=== PATIENT | female | born 1980 | race Two or more races ===

== ENCOUNTER 2016-10-18 12:29 | Emergency (ER) | payer MEDICARE, MEDICAID ==
[~2016-10-18 12:29] MED LIST: DOXY-LEMMON100 MG PO; IBUPROFEN800 M1 PO; MIRENA1 EACH IU; NORCO 5-325 TA1 EACH PO; PRENATAL VITAM1 EAC5 PO; PRENATAL VITAM1 EAC6 PO; PRENATAL VITAM1 EAC7 PO
[2016-10-18] MEDS ORDERED: PROGESTERONE (14:07)
[2016-10-18 14:23] LABS: BASO % 0.5 % (0-2); EOS % 3.3 % (0-7); EOSINOPHIL ABSOLUTE COUNT 0.3 tho/cmm (0.0-0.7); HCT-HEMATOCRIT 38.4 % (34.0-49.0); HGB-HEMOGLOBIN 12.7 gm/dl (12.0-15.5); IMMATURE GRANULOCYTES ABSOLUTE 0.02 tho/cmm (0-0.03); IMMATURE GRANULOCYTES PERCENT 0.2 % (0-0.3); LYMPH % 29.3 % (20-45); LYMPH ABSOLUTE COUNT 2.6 tho/cmm (0.8-4.5); MCHC MEAN CORPUSCULAR HGB CONC 33.1 % (32.0-36.0); MCV (MEAN CELL VOLUME) 84.8 fl (82.0-96.0); MEAN PLATELET VOLUME 9.4 cmc (9.4-12.4); MONO % 6.8 % (0-12); MONOCYTE ABSOLUTE COUNT 0.6 tho/cmm (0.0-1.2); NEUTROPHIL ABSOLUTE COUNT 5.2 tho/cmm (1.6-8.0); NEUTROPHIL-AUTOMATED 5.2 tho/cmm (1.6-8.0); NEUTROPHILS % 59.9 % (40-80); PLATELET COUNT 285 tho/cmm (150-450); RED BLOOD COUNT 4.53 mil/cmm (4.00-5.20); RED CELL DISTRIBUTION WIDTH 14.7 % (12.4-16.4); WHITE BLOOD COUNT 8.7 tho/cmm (4.0-10.0)
[2016-10-18 14:37] LABS: URINE APPEARANCE HAZY; URINE BILIRUBIN NEGATIVE (NEG); URINE BLOOD LARGE (NEG); URINE COLOR YELLOW; URINE GLUCOSE (UA) NEGATIVE (NEG); URINE KETONE SMALL (NEG); URINE LEUKOCYTE ESTERASE POSITIVE (NEG); URINE NITRITE NEGATIVE (NEG); URINE PROTEIN SMALL (NEG)
[2016-10-18 14:49] LABS: URINE EPITHELIAL CELLS 30-40 /[HPF] (0-10); URINE MUCUS 2+
[2016-10-18 14:50] LABS: URINE BACTERIA 2+; URINE WBC 15-20 /[HPF] (0-5)
== END 2016-10-18 16:06 ==
LOC: EDMED 12:29
PROVIDERS: Emergency Medicine
DX: O20.9 Hemorrhage in early pregnancy, unspecified (principal); O99.331 Smoking (tobacco) complicating pregnancy, first trimester; F17.290 Nicotine dependence, other tobacco product, uncomplicated; Z3A.00 Weeks of gestation of pregnancy not specified; R10.2 Pelvic and perineal pain